=== PATIENT | female | born 1985 | race Caucasian/White ===

== ENCOUNTER 2023-02-13 15:14 | Emergency (ER) | payer BC, SELFPAY ==
[2023-02-13] MEDS ORDERED: traMADol HCl 50 MG TAB ONE (16:17)
== END 2023-02-13 16:56 | disposition home or self-care (01) ==
LOC: NAV ERS 15:14
DX: S93.411A Sprain of calcaneofibular ligament of right ankle, initial encounter (principal); S00.83XA Contusion of other part of head, initial encounter; X50.1XXA Overexertion from prolonged static or awkward postures, initial encounter
CPT/HCPCS: 70486

== ENCOUNTER 2023-08-08 10:03 | Outpatient (CLI) | payer OTHER | END 2023-08-08 10:04 | disposition home or self-care (01) | LOC: NAV RAD 10:03 | PROVIDERS: ATTEND Internal Medicine Rheumatology | DX: M45.0 Ankylosing spondylitis of multiple sites in spine (principal); M53.3 Sacrococcygeal disorders, not elsewhere classified | CPT/HCPCS: 72202 ==

== ENCOUNTER 2023-12-30 15:23 | Outpatient (CLI) | payer BC | END 2023-12-30 15:24 | disposition home or self-care (01) | LOC: NAV RAD 15:23 | PROVIDERS: ATTEND Internal Medicine Rheumatology | DX: M32.9 Systemic lupus erythematosus, unspecified (principal); M45.9 Ankylosing spondylitis of unspecified sites in spine; M62.838 Other muscle spasm; M79.7 Fibromyalgia; R74.8 Abnormal levels of other serum enzymes; Z79.899 Other long term (current) drug therapy; M50.30 Other cervical disc degeneration, unspecified cervical region; M51.36 Other intervertebral disc degeneration, lumbar region | CPT/HCPCS: 72040; 72100 ==